=== PATIENT | female | born 1990 ===

== ENCOUNTER 2020-11-06 01:32 | Inpatient (IN) ==
[2020-11-06] MEDS ORDERED: LACTATED RINGER'S 1,000 ML IV PRN (10:15)
[2020-11-06] MEDS ORDERED: OXYTOCIN 30 UNITS/500 ML BAG IV PRN ×2 (10:15→20:13)
[2020-11-06 10:54] LABS: Hemoglobin 12.3 g/dL (12.0-16.0); Mean Corpuscular Hemoglobin 33.2 pg (25-34); Mean Corpuscular Hgb Conc 36.2 g/dL (32-36); Mean Corpuscular Volume 91.9 fL (80-100); Platelet Count 159 K/uL (130-400); RDW Coefficient of Variation 12.9 % (11.5-14.5); RDW Standard Deviation 43.6 fL (36.4-46.3); White Blood Count 8.42 K/uL (4.8-10.8)
--- NOTE | 2020-11-06 11:13 | Obstetrical Progress Note ---
Date of Service November 06, 2020 Assessment & Plan Admission and Anticipated Discharge Date Admission Date: November 06, 2020 Subjective Admit Note 30 F P1001 at 41 weeks admitted to L&D for induction of labor for post dates. GBS is negative. Covid is negative. FHT Cat 1. Cervix is finger tip/50/- 3/posterior/firm/vertex/intact. Will plan for Cytotec for cervical ripening. Results & Data ([facility]) Vital Signs (Past 12 Hours) Vital Signs Temp Pulse Resp BP 11/06/20 10:12 36.9 C 75 20 92/59 L
[2020-11-06] MEDS: miSOPROStoL 25 MCG TAB PV SCH ×3 (11:23→20:14)
--- NOTE | 2020-11-06 11:26 | Obstetrical Progress Note ---
Date of Service November 06, 2020 Assessment & Plan Admission and Anticipated Discharge Date Admission Date: November 06, 2020 Physical Exam Genitourinary: Manual OB Exam: + cervical dilation fingertip, + cervical effacement 50% and + station high OB Exam Monitor Tracing: + external FHT monitor used, + external uterine monitor used, + category I and + normal FHT variability Cytotec 25 mcg placed vaginally EFW 7 lbs. Results & Data ([facility]) Vital Signs (Past 12 Hours) Vital Signs Temp Pulse Resp BP 11/06/20 10:12 36.9 C 75 20 92/59 L
--- NOTE | 2020-11-06 17:29 | Obstetrical Progress Note ---
Date of Service November 06, 2020 Assessment & Plan Admission and Anticipated Discharge Date Admission Date: November 06, 2020 Physical Exam Genitourinary: Manual OB Exam: + cervical dilation fingertip, + cervical effacement 50% and + station high OB Exam Monitor Tracing: + external FHT monitor used, + external uterine monitor used, + category I and + normal FHT variability patient rosalie every 3-4 minutes cervix is softening Results & Data ([facility]) Vital Signs (Past 12 Hours) Vital Signs Temp Pulse Resp BP 11/06/20 16:19 36.8 C 75 20 91/55 L 11/06/20 13:44 36.9 C 67 20 103/53 L 11/06/20 10:12 36.9 C 75 20 92/59 L
--- NOTE | 2020-11-06 20:10 | Delivery Summary ---
Vaginal Delivery Summary Date of Service November 06, 2020 Vaginal Delivery Summary Delivery Note live female RUBEN over intact perineum with nuchal cord x1 reduced at delivery. Apgars 8/8 weight pending. Cord blood obtained and placenta delivered spontaneously and intact. No tears. EBL 200 ml. Final sponge and instrument count are correct. Mom and baby stable.
[2020-11-06] MEDS ORDERED: ACETAMINOPHEN 325 MG TAB PO PRN (20:13)
[2020-11-06] MEDS ORDERED: BENZOCAINE 20% AER SPR 82.5 GM CAN EXT PRN (20:13)
[2020-11-06] MEDS ORDERED: bisacodyL 10 MG SUPP PR PRN (20:13)
[2020-11-06] MEDS ORDERED: HYDROCORTISONE ACETATE 25 MG SUPP PR PRN (20:13)
[2020-11-06] MEDS ORDERED: SUPERCREAM 0.870% 15 GM JAR EXT PRN (20:13)
[2020-11-06] MEDS ORDERED: DIPHTHERIA/TETANUS/PERTUSSIS 0.5 ML SYR/VIAL IM ONE (20:13)
[2020-11-06] MEDS: IBUPROFEN 600 MG TAB PO PRN (20:23)
[2020-11-06] MEDS: DOCUSATE SODIUM 100 MG CAP PO SCH (21:49)
[2020-11-07 07:08] LABS: Hematocrit (blood only) 35.5 % (37-47); Hemoglobin 12.5 g/dL (12.0-16.0); Mean Corpuscular Hemoglobin 32.3 pg (25-34); Mean Corpuscular Hgb Conc 35.2 g/dL (32-36); Mean Corpuscular Volume 91.7 fL (80-100); Mean Platelet Volume 11.4 fL (7.4-10.4); Platelet Count 162 K/uL (130-400); RDW Coefficient of Variation 13.1 % (11.5-14.5); RDW Standard Deviation 43.4 fL (36.4-46.3); Red Blood Count 3.87 M/uL (4.2-5.4); White Blood Count 14.13 K/uL (4.8-10.8)
[2020-11-07] MEDS: DOCUSATE SODIUM 100 MG CAP PO SCH ×2 (08:42→20:45)
[2020-11-07] MEDS: PRENATAL VITAMIN 1 TAB PO SCH (08:42)
[2020-11-07] MEDS ORDERED: NON-FORMULARY MEDICATION (Prenat.Vits,Cal,Min-Iron-Folic Tablet) PO SCH (09:00)
--- NOTE | 2020-11-07 09:56 | Obstetrical Progress Note ---
Date of Service November 07, 2020 Assessment & Plan (1) Normal course: PPD #1 pt doing well d/c home tomorrow Subjective Ambulation: ambulating normally Voiding: no voiding problems Passing Gas:: Yes Diet Tolerance:: regular diet Lochia:: Small Feeding Type:: breast feeding Review of Systems All systems reviewed & are unremarkable except as noted in HPI & below Physical Exam Constitutional WD/WN, vitals as above well developed and well nourished Eyes PERRL, conjunctivae normal, anicteric sclerae Neck trachea midline, no thyromegaly Respiratory normal respiratory effort, lungs clear to auscultation Auscultation: no crackles, no rales and no wheezes Cardiovascular RRR, no murmur, no edema Gastrointestinal (Abdomen) normal bowel sounds, soft, nontender, no hepatosplenomegaly Uterus is below umbilicus Musculoskeletal no cyanosis or clubbing, extremities motor strength 5/5 Skin no rashes, warm and dry Neurologic patellar DTR's 2+ bilat, sensation intact Psychiatric A+Ox3, euthymic affect Genitourinary normal external appearance Results & Data ([facility]) Vital Signs (Past 12 Hours) Vital Signs Temp Pulse Pulse Resp BP BP 11/07/20 04:30 36.6 C 64 18 95/56 L 11/06/20 23:20 36.5 C 70 18 114/66 11/06/20 22:00 37.2 C 78 18 107/57 L
[2020-11-07] MEDS ORDERED: bisacodyL 5 MG TABEC PO SCH (20:00)
[2020-11-07] MEDS: IBUPROFEN 600 MG TAB PO PRN (23:38)
[2020-11-08 06:36] LABS: Hematocrit (blood only) 34.2 % (37-47)
--- NOTE | 2020-11-08 08:13 | Obstetrical Progress Note ---
Date of Service November 08, 2020 Assessment & Plan Admission and Anticipated Discharge Date Admission Date: November 06, 2020 Subjective Patient is seen and examined. She feels well, no complaints other than hemorrhoids. Ambulating without dizziness Voiding without difficulty Tolerating regular diet with out N&V Bleeding is minimal No fever/ chills/ CP/ SOB/ N&V/ Leg pain Breast feeding without problems Vital Signs Temp Pulse Resp BP Pulse Ox 11/08/20 07:25 36.9 C 83 18 91/57 L 11/08/20 00:00 36.7 C 79 18 94/61 L 97 11/07/20 20:15 37.1 C 80 18 96/59 L 97 11/07/20 15:50 37.2 C 76 16 80/42 L 11/07/20 12:30 37.2 C 72 18 96/61 L Lab Results 11/06/20 11/06/20 11/06/20 Range/Units 10:22 10:22 10:41 WBC 8.42 (4.8-10.8) K/uL RBC 3.70 L (4.2-5.4) M/uL Hgb 12.3 (12.0-16.0) g/dL Hct 34.0 L (37-47) % MCV 91.9 (80-100) fL MCH 33.2 (25-34) pg MCHC 36.2 H (32-36) g/dL RDW Std Deviation 43.6 (36.4-46.3) fL RDW Coeff of Chhaya 12.9 (11.5-14.5) % Plt Count 159 (130-400) K/uL MPV 11.0 H (7.4-10.4) fL COVID-19 Eval Order Covid19 [facility] SARS-CoV-2, RNA, NAAT NEGATIVE (NEGATIVE) 11/07/20 11/08/20 Range/Units 06:50 06:09 WBC 14.13 H (4.8-10.8) K/uL RBC 3.87 L (4.2-5.4) M/uL Hgb 12.5 12.0 (12.0-16.0) g/dL Hct 35.5 L 34.2 L (37-47) % MCV 91.7 (80-100) fL MCH 32.3 (25-34) pg MCHC 35.2 (32-36) g/dL RDW Std Deviation 43.4 (36.4-46.3) fL RDW Coeff of Chhaya 13.1 (11.5-14.5) % Plt Count 162 (130-400) K/uL MPV 11.4 H (7.4-10.4) fL COVID-19 Eval Order SARS-CoV-2, RNA, NAAT (NEGATIVE) PE: General: Alert, orientedx3, NAD Abd: soft, NT, fundus firm, below Umbilicus Perineum intact, Lochia rubra minimal Small external hemorrhoid. pink Ext; NT, no edema AP: 30 yo s/p , ppd# 2 VSS Afebrile doing well Continue routine care All questions were answered Discussed when to call Rx for hemorrhoid cream D/C home , f/u in office Results & Data ([facility]) Vital Signs (Past 12 Hours) Vital Signs Temp Pulse Resp BP Pulse Ox 11/08/20 07:25 36.9 C 83 18 91/57 L 11/08/20 00:00 36.7 C 79 18 94/61 L 97 11/07/20 20:15 37.1 C 80 18 96/59 L 97
[2020-11-08] MEDS: PRENATAL VITAMIN 1 TAB PO SCH (08:43)
[2020-11-08] MEDS: DOCUSATE SODIUM 100 MG CAP PO SCH (08:43)
[2020-11-08] MEDS: IBUPROFEN 600 MG TAB PO PRN (08:43)
[2020-11-08] MEDS ORDERED: IBUPROFEN 600 MG PO ONE (18:38)
== END 2020-11-08 19:28 | disposition home or self-care (01) ==
LOC: 4S1 09:40 → 4S2 22:30